=== PATIENT | female | born 1940 | race Caucasian/White ===

== ENCOUNTER 2018-12-03 19:03 | Emergency (ER) | payer MEDICARE ==
--- NOTE | 2018-12-03 19:32 | EDM.PDOC ---
ED HPI GENERAL MEDICAL PROBLEM - General Chief Complaint: General Stated Complaint: DEMENTIA VIA NORTH Time Seen by Provider: 12/03/18 19:27 Source of Information: Reports: Patient, Family, RN Notes Reviewed History Limitations: Reports: Physical Impairment - History of Present Illness INITIAL COMMENTS - FREE TEXT/NARRATIVE: 78-year-old female presents emergency department today via EMS services, she has a known history of Alzheimer's dementia quite severe she does live on the same property as her son and remainder family unfortunately she went out for a walk today and ended up getting lost was found EMS services were called could not locate family at the time family is not present. In the process of trying to find placement for her at [facility] facility - Related Data Allergies Allergy/AdvReac Type Severity Reaction Status Date / Time No Known Allergies Allergy Verified 12/03/18 19:27 Past Medical History Neurological History: Reports: Alzheimers Disease Social & Family History - Tobacco Use Smoking Status *Q: Never Smoker ED ROS GENERAL - Review of Systems Review Of Systems: ROS reveals no pertinent complaints other than HPI. Constitutional: Reports: No Symptoms Neurological: Reports: Other (Memory issues) ED EXAM, GENERAL - Physical Exam Exam: See Below Exam Limited By: Physical Impairment General Appearance: Alert, No Apparent Distress Respiratory/Chest: No Respiratory Distress, Lungs Clear, Normal Breath Sounds, No Accessory Muscle Use, Chest Non-Tender Cardiovascular: Regular Rate, Rhythm, No Murmur Course - Vital Signs Last Recorded V/S: Last Vital Signs Temp 97.5 F 12/03/18 19:24 Pulse 51 L 12/03/18 19:24 Resp 16 12/03/18 19:24 BP 168/70 H 12/03/18 19:24 Pulse Ox 97 12/03/18 19:24 Departure - Departure Time of Disposition: 19:31 Disposition: Home, Self-Care 01 Condition: Poor Clinical Impression: Alzheimer's dementia Qualifiers: Alzheimer's disease onset: late-onset Dementia behavioral disturbance: without behavioral disturbance Qualified Code(s): G30.1 - Alzheimer's disease with late onset; F02.80 - Dementia in other diseases classified elsewhere without behavioral disturbance - Discharge Information Referrals: Catrina Cardozo MD [Primary Care Provider] - Additional Instructions: Please continue with her plans for memory care unit consider GPS monitoring device if she remains at your home, call return to the emergency department worsening of symptoms - Assessment/Plan Plan: Assessment Acuity = chronic Site and laterality = Alzheimer's dementia Etiology = unknown etiology Manifestations = none Location of injury = Home Lab values = none Plan Family is present at this time they have plans in place including GPS monitor and/or placement in a memory care facility will discharged home, we also filed a concern for vulnerable adult with [facility] services This note was dictated using [employer] voice recognition software please call with any questions on syntax or grammar.
== END 2018-12-03 19:44 | disposition home or self-care (01) ==
LOC: JP.ED 19:03
DX: G30.1 Alzheimer's disease with late onset (principal); F02.80 Dementia in other diseases classified elsewhere, unspecified severity, without behavioral disturbance, psychotic disturbance, mood disturbance, and anxiety
CPT/HCPCS: 99283; 99284

== ENCOUNTER 2021-03-25 17:01 | Emergency (ER) | payer MEDICARE ==
[2021-03-25] MEDS ORDERED: Sodium Chloride 0.9% 10 ML Syringe FLUSH PRN (17:03)
[2021-03-25] MEDS ORDERED: Sodium Chloride 0.9% 1,000 ML IV SCH (17:15)
--- NOTE | 2021-03-25 19:08 | EDM.PDOC ---
ED HPI GENERAL MEDICAL PROBLEM - General Chief Complaint: Genitourinary Problem Stated Complaint: MEDICAL VIA Time Seen by Provider: 03/25/21 17:02 Source of Information: Reports: EMS, [facility] Records History Limitations: Reports: Physical Impairment - History of Present Illness INITIAL COMMENTS - FREE TEXT/NARRATIVE: 80-year-old female brought in for evaluation because of decreased urine output. She has had some confusion and agitation over the last couple of days, was evaluated in [place] twice and was found to have a UTI but no other findings. She is on cephalexin for her UTI, and also was started on Zyprexa which seems to be helping with her agitation but today she had marked decreased urine output and they were concerned about that so sent her in. She is afebrile, stable, talkative and not complaining of any specific symptoms but she has significant dementia. IV hydration was initiated prior to me seeing the patient. Labs were also ordered. Onset: Unknown/Unsure Associated Symptoms: Reports: Confusion, Weakness, Other (Decreased urinary output) - Related Data Allergies Allergy/AdvReac Type Severity Reaction Status Date / Time No Known Allergies Allergy Verified 12/03/18 19:27 Home Meds: Home Meds Aspirin [Adult Low Dose Aspirin EC] 81 mg PO DAILY 12/03/18 [History] NIFEdipine [Procardia Xl] 90 mg PO DAILY 12/03/18 [History] atorvaSTATin [Lipitor] 10 mg PO DAILY 12/03/18 [History] busPIRone HCl [Buspirone HCl] 7.5 mg PO BID PRN 12/03/18 [History] busPIRone HCl [Buspirone HCl] 15 mg PO DAILY 12/03/18 [History] hydroCHLOROthiazide [Hydrochlorothiazide] 12.5 mg PO DAILY 12/03/18 [History] Fluticasone Propionate [Flonase] 1 spray NS BID 03/25/21 [History] Gabapentin [Neurontin] 100 mg PO DAILY 03/25/21 [History] Gabapentin [Neurontin] 200 mg PO BID 03/25/21 [History] OLANZapine [Olanzapine] 5 mg PO BEDTIME 03/25/21 [History] OLANZapine [ZyPREXA] 2.5 mg PO DAILY 03/25/21 [History] Sertraline [Zoloft] 75 mg PO DAILY 03/25/21 [History] cephALEXin [Keflex] 500 mg PO BID 03/25/21 [History] Past Medical History HEENT History: Reports: Impaired Vision, Macular Degeneration, Other (See Below) 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 Cardiovascular History: Reports: CAD, Hypertension, [place] [employer] History: Reports: Musculoskeletal History: Reports: Fibromyalgia Neurological History: Reports: Alzheimers Disease Psychiatric History: Reports: Dementia, Depression, Panic Attack Dermatologic History: Reports: Eczema - Infectious Disease History Infectious Disease History: Reports: Chicken Pox, Measles, Mumps Social & Family History - Tobacco Use Tobacco Use Status *Q: Never Tobacco User ED ROS GENERAL - Review of Systems Review Of Systems: See Below Constitutional: Denies: Fever, Chills HEENT: Reports: No Symptoms Respiratory: Reports: No Symptoms Cardiovascular: Denies: Chest Pain GI/Abdominal: Denies: Abdominal Pain, Nausea, Vomiting Skin: Reports: No Symptoms Neurological: Reports: Confusion ED EXAM, GENERAL - Physical Exam Exam: See Below Exam Limited By: No Limitations General Appearance: Alert, No Apparent Distress, Other (Very talkative, comfortable) Eye Exam: Bilateral Eye: Normal Inspection (Hydration appears normal but she has had a half a liter of fluid) Head: Atraumatic Respiratory/Chest: No Respiratory Distress, Lungs Clear Cardiovascular: Regular Rate, Rhythm GI/Abdominal: Soft, Non-Tender Extremities: Normal Inspection. No: Pedal Edema Neurological: Alert. No: Oriented Psychiatric: Normal Affect, Normal Mood Skin Exam: Warm, Dry Course - Vital Signs Last Recorded V/S: Last Vital Signs Temp 97.5 F 03/25/21 17:03 Pulse 75 03/25/21 19:10 Resp 16 03/25/21 19:10 BP 174/79 H 03/25/21 19:10 Pulse Ox 96 03/25/21 17:03 - Orders/Labs/Meds Orders: Active Orders 24 hr Category Date Time Status Saline Lock Insert [OM.PC] Routine Oth 03/25/21 17:03 Ordered Labs: Laboratory Tests 03/25/21 03/25/21 03/25/21 Range/Units 17:14 17:14 17:14 WBC 8.1 (4.5-11.0) K/uL RBC 4.14 (3.30-5.50) M/uL Hgb 12.1 (12.0-15.0) g/dL Hct 36.5 (36.0-48.0) % MCV 88 (80-98) fL MCH 29 (27-31) pg MCHC 33 (32-36) % Plt Count 199 (150-400) K/uL Neut % (Auto) 59.6 (36-66) % Lymph % (Auto) 20.3 L (24-44) % [place] % (Auto) 14.7 H (2-6) % Eos % (Auto) 5.2 H (2-4) % Baso % (Auto) 0.2 (0-1) % Sodium 148 (140-148) mmol/L Potassium 3.4 L (3.6-5.2) mmol/L Chloride 108 (100-108) mmol/L Carbon Dioxide 29 (21-32) mmol/L Anion Gap 14.4 H (5.0-14.0) mmol/L BUN 22 H (7-18) mg/dL Creatinine 1.0 (0.6-1.0) mg/dL Est Cr Clr Drug Dosing 34.90 mL/min Estimated GFR (MDRD) 53 L (>60) Glucose 88 (74-106) mg/dL Lactic Acid 1.0 (0.4-2.0) mmol/L Calcium 8.8 (8.5-10.1) mg/dL Total Bilirubin 0.5 (0.2-1.0) mg/dL AST 35 (15-37) U/L ALT 15 (12-78) U/L Alkaline Phosphatase 91 (46-116) U/L C-Reactive Protein 5.02 H (0.0-0.3) mg/dL Total Protein 7.0 (6.4-8.2) g/dL Albumin 3.5 (3.4-5.0) g/dL Globulin 3.5 (2.3-3.5) g/dL Albumin/Globulin Ratio 1.0 L (1.2-2.2) Urine Color (YELLOW) Urine Appearance (CLEAR) Urine pH (5.0-8.0) Ur Specific [place] (1.008-1.030) Urine Protein (NEGATIVE) mg/dL Urine Glucose (UA) (NEGATIVE) mg/dL Urine Ketones (NEGATIVE) mg/dL Urine Occult Blood (NEGATIVE) Urine Nitrite (NEGATIVE) Urine Bilirubin (NEGATIVE) Urine Urobilinogen (0.2-1.0) EU/dL Ur Leukocyte Esterase (NEGATIVE) Urine RBC (0-5) Urine WBC (0-5) Ur Epithelial Cells Amorphous Sediment Urine Bacteria Urine Mucus Urinalysis Comment 03/25/21 Range/Units 18:11 WBC (4.5-11.0) K/uL RBC (3.30-5.50) M/uL Hgb (12.0-15.0) g/dL Hct (36.0-48.0) % MCV (80-98) fL MCH (27-31) pg MCHC (32-36) % Plt Count (150-400) K/uL Neut % (Auto) (36-66) % Lymph % (Auto) (24-44) % [place] % (Auto) (2-6) % Eos % (Auto) (2-4) % Baso % (Auto) (0-1) % Sodium (140-148) mmol/L Potassium (3.6-5.2) mmol/L Chloride (100-108) mmol/L Carbon Dioxide (21-32) mmol/L Anion Gap (5.0-14.0) mmol/L BUN (7-18) mg/dL Creatinine (0.6-1.0) mg/dL Est Cr Clr Drug Dosing mL/min Estimated GFR (MDRD) (>60) Glucose (74-106) mg/dL Lactic Acid (0.4-2.0) mmol/L Calcium (8.5-10.1) mg/dL Total Bilirubin (0.2-1.0) mg/dL AST (15-37) U/L ALT (12-78) U/L Alkaline Phosphatase (46-116) U/L C-Reactive Protein (0.0-0.3) mg/dL Total Protein (6.4-8.2) g/dL Albumin (3.4-5.0) g/dL Globulin (2.3-3.5) g/dL Albumin/Globulin Ratio (1.2-2.2) Urine Color Yellow (YELLOW) Urine Appearance Clear (CLEAR) Urine pH 7.0 (5.0-8.0) Ur Specific [place] 1.020 (1.008-1.030) Urine Protein Negative (NEGATIVE) mg/dL Urine Glucose (UA) Negative (NEGATIVE) mg/dL Urine Ketones Negative (NEGATIVE) mg/dL Urine Occult Blood Negative (NEGATIVE) Urine Nitrite Negative (NEGATIVE) Urine Bilirubin Negative (NEGATIVE) Urine Urobilinogen 0.2 (0.2-1.0) EU/dL Ur Leukocyte Esterase Trace H (NEGATIVE) Urine RBC 0-5 (0-5) Urine WBC 0-5 (0-5) Ur Epithelial Cells Rare Amorphous Sediment Few Urine Bacteria Few Urine Mucus Occasional Urinalysis Comment See note Meds: Medications Discontinued Medications Generic Name Dose Route Start Last Admin Trade Name Freq PRN Reason Stop Dose Admin Sodium Chloride 1,000 mls @ 999 mls/hr 03/25/21 17:15 03/25/21 17:27 Normal Saline IV 999 mls/hr ASDIRECTED SUDHEER Administration Sodium Chloride 10 ml 03/25/21 17:03 03/25/21 17:27 Sodium Chloride 0.9% 10 Ml Syringe FLUSH 10 ml ASDIRECTED PRN Administration Keep Vein Open - Re-Assessments/Exams Free Text/Narrative Re-Assessment/Exam: 03/25/21 19:06 CBC, lactic acid, CMP were ordered prior to me seeing the patient. These were all very reassuring, creatinine was normal at 1.0 and GFR 53. Lactic acid was 1.0. White count was normal. I then ordered a mini cath UA which also look clean. After the full liter of fluid, she will be sent back to assisted living, continue Zyprexa but stop the antibiotics and push fluids. She can be rechecked if not continuing to improve satisfactorily. Departure - Departure Time of Disposition: 20:33 Disposition: DC/Tfer to [facility] Clinical Impression: Moderate dehydration, Confusion - Discharge Information Instructions: Dehydration, Adult, [place] Referrals: PCP,Unknown [Primary Care Provider] - Forms: ED Department Discharge Care Plan Goals: Stop antibiotic, continue all other medications and encourage fluid intake. Consider rechecking in 2 to 3 days if not continuing to improve. Return anytime if worsening such as fever or increased pain. Sepsis Event Note (ED) - Evaluation Sepsis Screening Result: No Definite Risk - Focused Exam Vital Signs: Vital Signs Temp Pulse Resp BP Pulse Ox 03/25/21 19:10 75 16 174/79 H 03/25/21 17:03 97.5 F 74 16 167/107 H 96
== END 2021-03-25 20:33 ==
LOC: JP.ED 17:01
DX: R41.0 Disorientation, unspecified (principal); E86.0 Dehydration; I25.10 Atherosclerotic heart disease of native coronary artery without angina pectoris; I10 Essential (primary) hypertension; I25.2 Old myocardial infarction; Z79.82 Long term (current) use of aspirin; Z79.899 Other long term (current) drug therapy
CPT/HCPCS: 36415; 80053; 81001; 83605; 85025; 86140; 99285; J7030